=== PATIENT | male | born 1950 | race Caucasian/White ===

== ENCOUNTER 2017-07-30 19:52 | Inpatient (IN) | END 2017-08-06 16:45 | disposition home or self-care (01) | DRG 811 ==

== ENCOUNTER 2017-08-19 22:34 | Inpatient (IN) | END 2017-08-24 15:08 | disposition home or self-care (01) | DRG 433 ==

== ENCOUNTER 2018-06-07 10:39 | Emergency (ER) | payer BC ==
[~2018-06-07] VITALS: Wt 80.0 kg
[~2018-06-07 10:39] MED LIST: AMOX500C2 PO; FOLI-49 PO; FURO40TA4 PO; LACT10SO5 PO; PANT40TA4 PO; PROP10TA6 PO; RIFA550T4 PO; SPIR25TA PO; [UNRECOGNIZED DRUG - CODE] PO
[2018-06-07] MEDS ORDERED: SPIR50TA4 PO (11:49)
[2018-06-07] MEDS ORDERED: morphine 4 MG/ML VIAL IV STA (15:07)
--- NOTE | 2018-06-07 15:11 | ERD ---
ER Documentation Chief Complaint Chief Complaint ABD PAIN DUE TO PARACENTISIS HPI This 67-year-old male presents the emergency room for evaluation of abdominal distention. He does have a history of liver cirrhosis. Patient's daughter is giving the majority of the history and states that he was complaining of abdominal distention. Denies any abdominal, and daughter states he also has a history of a previous left-sided pleural effusion. The patient denies any fevers chills nausea or vomiting at this time. He describes his pain as an achy pain which is located all over the abdomen with relieving factor of paracentesis. ROS All systems reviewed and are negative except as per history of present illness. Medications Home Meds Active Scripts Folic Acid* (Folic Acid*) 1 Mg Tablet, 1 MG PO DAILY, #30 TAB 2 Refills Prov:KALINA MEZA S. 08/06/17 Reported Medications Spironolactone* (Aldactone*) 50 Mg Tablet, 50 MG PO BID, TAB 06/07/18 Lactulose* (Lactulose*) 10 Gm/15 Ml Solution, 15 ML PO BID PRN for CONSTIPATION, ML 08/19/17 Rifaximin* (Xifaxan*) 550 Mg Tablet, 550 MG PO BID, TAB 07/30/17 Discontinued Reported Medications Furosemide* (Furosemide*) 40 Mg Tablet, 40 MG PO BID, TAB 07/30/17 Spironolactone* (Aldactone*) 25 Mg Tablet, 100 MG PO BID, #180 TAB 07/30/17 Discontinued Scripts Clarithromycin* (Clarithromycin* ER) 500 Mg Tab.sr.24h, 500 MG PO BID for 12 Days, #24 TAB Prov:LISSETT FAN 08/24/17 Amoxicillin* (Amoxicillin*) 500 Mg Cap, 1000 MG PO BID for 12 Days, #24 CAP Prov:LISSETT FAN 08/24/17 Pantoprazole* (Pantoprazole*) 40 Mg Tablet.dr, 40 MG PO BID@, #60 2 Refills Prov:KALINA MEZA S. 08/06/17 Propranolol Hcl* (Propranolol Hcl*) 10 Mg Tablet, 10 MG PO TID, #90 TAB 3 Refills Prov:KALINA MEZA S. 08/06/17 Allergies Allergies: Coded Allergies: No Known Allergy (Unverified , 08/22/17) PMhx/Soc History of Surgery: No Anesthesia Reaction: No Hx Neurological Disorder: No Hx Respiratory Disorders: No Hx Cardiac Disorders: Yes (HYPOTENSION) Hx Psychiatric Problems: No Hx Miscellaneous Medical Probl: Yes (ANEMIA) Hx Alcohol Use: Yes Hx Substance Use: No Hx Tobacco Use: No Smoking Status: Never smoker Physical Exam Vitals Vital Signs Date Temp Pulse Resp B/P (MAP) Pulse Ox O2 O2 Flow FiO2 Time Delivery Rate 06/07/18 98.1 102 18 108/78 99 10:44 (88) Physical Exam Const: No acute distress Head: Atraumatic Eyes: Normal Conjunctiva ENT: Normal External Ears, Nose and Mouth. Neck: Full range of motion. No meningismus. Resp: Clear to auscultation bilaterally Cardio: Regular rate and rhythm, no murmurs Abd: Abdominal distention, normal bowel sounds, no peritoneal signs Skin: No petechiae or rashes Back: No midline or flank tenderness Ext: No cyanosis, or edema Neur: Awake and alert Psych: Normal Mood and Affect Result Diagram: 06/07/18 1205 06/07/18 1205 Results 24 hrs Laboratory Tests Test 06/07/18 12:05 White Blood Count 5.8 10^3/ul Red Blood Count 2.52 10^6/ul Hemoglobin 8.2 g/dl Hematocrit 24.3 % Mean Corpuscular Volume 96.4 fl Mean Corpuscular Hemoglobin 32.5 pg Mean Corpuscular Hemoglobin Concent 33.7 g/dl Red Cell Distribution Width 13.0 % Platelet Count 175 10^3/UL Mean Platelet Volume 8.8 fl Immature Granulocytes % 0.300 % Neutrophils % 66.5 % Lymphocytes % 16.3 % Monocytes % 16.3 % Eosinophils % 0.3 % Basophils % 0.3 % Nucleated Red Blood Cells % 0.0 /100WBC Immature Granulocytes # 0.020 10^3/ul Neutrophils # 3.8 10^3/ul Lymphocytes # 0.9 10^3/ul Monocytes # 0.9 10^3/ul Eosinophils # 0.0 10^3/ul Basophils # 0.0 10^3/ul Nucleated Red Blood Cells # 0.0 10^3/ul Prothrombin Time 16.5 Sec Prothrombin Time Ratio 1.3 INR International Normalized Ratio 1.31 Activated Partial Thromboplast Time 33.5 Sec Sodium Level 140 mmol/L Potassium Level 4.8 mmol/L Chloride Level 101 mmol/L Carbon Dioxide Level 26 mmol/L Anion Gap 13 Blood Urea Nitrogen 22 mg/dl Creatinine 1.18 mg/dl Est Glomerular Filtrat Rate mL/min > 60 mL/min Glucose Level 114 mg/dl Calcium Level 9.4 mg/dl Total Bilirubin 0.6 mg/dl Direct Bilirubin 0.00 mg/dl Indirect Bilirubin 0.6 mg/dl Aspartate Amino Transf (AST/SGOT) 58 IU/L Alanine Aminotransferase (ALT/SGPT) 27 IU/L Alkaline Phosphatase 117 IU/L Total Protein 7.6 g/dl Albumin 3.6 g/dl Globulin 4.00 g/dl Albumin/Globulin Ratio 0.90 Lipase 149 U/L Procedures/MDM This 67-year-old male presents to the ER for evaluation of abdominal distention. On my examination did know the patient was in no respiratory distress, he was afebrile and hemodynamically stable. The patient was also nontoxic-appearing. He did have a distended abdomen and did order lab work. I did order an ultr asound-guided paracentesis however there is been a delay given the fact that the radiologist is currently in the procedure. This patient will undergo ultrasound paracentesis for removal of fluid for therapeutic purposes and will be discharged afterwards. She was given strict return precautions. Chest X-ray 1V Interpreted by me: Soft Tissue: No acute a bnormalities Bones: No acute abnormalities Mediastinum/Cardiac Silhouette/Lungs: Left pleural effusion Departure Diagnosis: Primary Impression: Abdominal distention Additional Impressions: Pleural effusion, left Ascites Liver cirrhosis Condition: JOHNNA Khan DO Jun 07, 2018 15:11
--- NOTE | 2018-06-07 16:39 | NUR ---
Ultrasound guided paracentesis of the left side was performed. Dr. Noemi Hoover aspirated 5000 mL of red fluid. Fluid was discarded. Patient tolerated procedure well.
[2018-06-07] MEDS ORDERED: LIDOCAINE 1% (MPF) 5 ML VIAL ONE (16:44)
[2018-06-07 17:06] VITALS: BP 112/75; PULSE 94; RESP 20
== END 2018-06-07 17:07 | disposition home or self-care (01) ==
LOC: E/R 10:39
DX: J90 Pleural effusion, not elsewhere classified (principal); K70.31 Alcoholic cirrhosis of liver with ascites
CPT/HCPCS: 71045; 80053; 83690; 85025; 85610; 85730; Z7610; 36415; J2270

== ENCOUNTER 2018-08-11 09:33 | Emergency (ER) | payer BC ==
[~2018-08-11] VITALS: Ht 172.7 cm; Wt 86.0 kg
[~2018-08-11 09:33] MED LIST changes: -AMOX500C2 PO; -FURO40TA4 PO; -PANT40TA4 PO; -PROP10TA6 PO; -SPIR25TA PO; +SPIR50TA4 PO; -[UNRECOGNIZED DRUG - CODE] PO
[2018-08-11 09:46] VITALS: Ht 172.7 cm; Wt 86.0 kg
[2018-08-11] MEDS ORDERED: FURO-109 PO (10:38)
[2018-08-11 13:15] VITALS: BP 105/70; PULSE 87; RESP 22
[2018-08-11 13:55] VITALS: BP 117/73; PULSE 82; RESP 20
[2018-08-11] MEDS ORDERED: LIDOCAINE 1% (MPF) 5 ML VIAL ONE (14:06)
--- NOTE | 2018-08-11 14:11 | ERD ---
ER Documentation Chief Complaint Chief Complaint Complains of abdominal pain Hx of Ascites HPI Patient is a 68-year-old male with a history of cirrhosis and ascites who presents saying "I need a paracentesis". The patient has no fevers. The patient said that he usually gets a paracentesis monthly. Upon review of old medical records this is the patient's fourth visit to the ER since July 2017. Review of the emergency department information exchange system shows visits to 3 separate emergency departments. The patient does have a primary doctor. ROS All systems reviewed and are negative except as per history of present illness. Medications Home Meds Reported Medications Furosemide* (Lasix*) 40 Mg Tablet, 40 MG PO DAILY, TAB 08/11/18 Spironolactone* (Aldactone*) 50 Mg Tablet, 50 MG PO BID, TAB 06/07/18 Lactulose* (Lactulose*) 10 Gm/15 Ml Solution, 15 ML PO BID PRN for CONSTIPATION, ML 08/19/17 Rifaximin* (Xifaxan*) 550 Mg Tablet, 550 MG PO BID, TAB 07/30/17 Discontinued Scripts Folic Acid* (Folic Acid*) 1 Mg Tablet, 1 MG PO DAILY, #30 TAB 2 Refills Prov:KALINA MEZA S. 08/06/17 Allergies Allergies: Coded Allergies: No Known Allergy (Unverified , 08/22/17) PMhx/Soc History of Surgery: No Anesthesia Reaction: No Hx Neurological Disorder: No Hx Respiratory Disorders: No Hx Cardiac Disorders: Yes (HYPOTENSION) Hx Psychiatric Problems: No Hx Miscellaneous Medical Probl: Yes (ANEMIA) Hx Alcohol Use: Yes (stopped ) Hx Substance Use: No Hx Tobacco Use: No Smoking Status: Never smoker FmHx Family History: No diabetes Physical Exam Vitals Vital Signs Date Temp Pulse Resp B/P (MAP) Pulse Ox O2 O2 Flow FiO2 Time Delivery Rate 08/11/18 97.4 102 20 121/73 98 09:46 (89) Physical Exam Const: No acute distress Head: Atraumatic Eyes: Normal Conjunctiva ENT: Normal External Ears, Nose and Mouth. Neck: Full range of motion. No meningismus. Resp: Clear to auscultation bilaterally Cardio: Regular rate and rhythm, no murmurs Abd: Abdominal distention with positive fluid wave Skin: No petechiae or rashes Back: No midline or flank tenderness Ext: No cyanosis, or edema Neur: Awake and alert Psych: Normal Mood and Affect Result Diagram: 08/11/18 1027 08/11/18 1027 Results 24 hrs Laboratory Tests Test 08/11/18 10:27 White Blood Count 4.8 10^3/ul Red Blood Count 3.20 10^6/ul Hemoglobin 9.1 g/dl Hematocrit 28.3 % Mean Corpuscular Volume 88.4 fl Mean Corpuscular Hemoglobin 28.4 pg Mean Corpuscular Hemoglobin Concent 32.2 g/dl Red Cell Distribution Width 14.6 % Platelet Count 263 10^3/UL Mean Platelet Volume 8.9 fl Immature Granulocytes % 0.200 % Neutrophils % 48.7 % Lymphocytes % 35.4 % Monocytes % 12.6 % Eosinophils % 2.7 % Basophils % 0.4 % Nucleated Red Blood Cells % 0.0 /100WBC Immature Granulocytes # 0.010 10^3/ul Neutrophils # 2.3 10^3/ul Lymphocytes # 1.7 10^3/ul Monocytes # 0.6 10^3/ul Eosinophils # 0.1 10^3/ul Basophils # 0.0 10^3/ul Nucleated Red Blood Cells # 0.0 10^3/ul Prothrombin Time 14.6 Sec Prothrombin Time Ratio 1.1 INR International Normalized Ratio 1.13 Activated Partial Thromboplast Time 32.3 Sec Sodium Level 138 mmol/L Potassium Level 5.3 mmol/L Chloride Level 104 mmol/L Carbon Dioxide Level 28 mmol/L Anion Gap 6 Blood Urea Nitrogen 19 mg/dl Creatinine 1.11 mg/dl Est Glomerular Filtrat Rate mL/min > 60 mL/min Glucose Level 96 mg/dl Calcium Level 9.3 mg/dl Total Bilirubin 0.4 mg/dl Direct Bilirubin 0.00 mg/dl Indirect Bilirubin 0.4 mg/dl Aspartate Amino Transf (AST/SGOT) 71 IU/L Alanine Aminotransferase (ALT/SGPT) 27 IU/L Alkaline Phosphatase 141 IU/L Total Protein 8.2 g/dl Albumin 3.5 g/dl Globulin 4.70 g/dl Albumin/Globulin Ratio 0.74 Current Medications Medications Dose Sig/Dory Start Time Status Last (Trade) Ordered Route PRN Stop Time Admin Dose Reason Admin Lidocaine 5 ml STK-MED 08/11/18 DC (Xylocaine ONCE .ROUTE 14:06 08/11/18 1% (Mpf)) 14:07 Procedures/MDM Patient is a 68-year-old male who presents with ascites. He had an ultrasound-guided paracentesis performed by radiology. I doubt spontaneous bacterial peritonitis. The patient looks well after the procedure. He will be discharged. He can return for any worsening symptoms. Departure Diagnosis: Primary Impression: Ascites Ascites type: other type Qualified Codes: R18.8 - Other ascites Condition: Fair Patient Instructions: Ascites Referrals: MARY PIÑA Additional Instructions: Llame al doctor nomgwen golden (Referral Sources) MAANA y celso kishore YVES PARA DENTRO DE KISHORE SEMANA. Dgale a la secretaria que nosotros le instruimos hacer esta yves.Avise o llame si doran condicin se empeora antes de la yves. LANCE FRAZIER MD Aug 11, 2018 14:11
[2018-08-11 14:15] VITALS: BP 108/74; PULSE 78; RESP 17
== END 2018-08-11 14:17 | disposition home or self-care (01) ==
LOC: E/R 09:33
DX: R18.8 Other ascites (principal)
CPT/HCPCS: 80053; 85025; 85610; 85730; Z7502; Z7610

== ENCOUNTER 2018-08-15 18:12 | Inpatient (IN) | payer BC ==
[~2018-08-15] VITALS: Ht 170.2 cm; Wt 82.5 kg
[~2018-08-15 18:12] MED LIST changes: -FOLI-49 PO; +FURO-109 PO
[2018-08-15 19:40] VITALS: PULSE 99
[2018-08-15 19:41] VITALS: PULSE 99
[2018-08-15 20:00] VITALS: BP 91/71; PULSE 100; PULSE 101; RESP 20
[2018-08-15 20:08] VITALS: Ht 170.2 cm; Wt 82.5 kg
[2018-08-15] MEDS ORDERED: NACL 0.9% 3 ML SYG IV SCH (20:30)
[2018-08-15] MEDS ORDERED: DOCUSATE SODIUM 100 MG CAP PO PRN (20:30)
[2018-08-15] MEDS ORDERED: BISACODYL (EC) 5 MG TAB PO PRN (20:30)
[2018-08-15 20:32] VITALS: BP 83/62; PULSE 100; RESP 20
[2018-08-15 21:34] VITALS: BP 128/73; PULSE 104
[2018-08-15] MEDS: morphine 2 MG INJ IV PRN (21:34)
[2018-08-15] MEDS ORDERED: FUROSEMIDE 40 MG INJ IV ONE (22:30)
--- NOTE | 2018-08-15 23:23 | HP ---
Date/Time of Note Date/Time of Note DATE: 08/15/18 TIME: 23:23 Assessment/Plan VTE Prophylaxis SCD applied (from [facility]): Yes Pharmacological prophylaxis: NA/contraindicated Pharm contraindication: low risk/ambulating Assessment/Plan Hospital Course This is a 68-year-old male presented to the telemetry floor for: 1. Decompensated alcoholic liver cirrhosis, with ascites and history of esophageal varices The patient did have hypotension at the transfer facility, the current time I will hold Lasix and spironolactone. I will give him albumin 25% x2. If we achieve better blood pressures I will give him Lasix however will hold his Spironolactone at the current time given his hyperkalemia. We will schedule a therapeutic ultrasound paracentesis Via via IR. We will continue patient's lactulose and rifaximin. Will check an ammonia level, patient though at the current time does not appear to be encephalopathic. 2. Hepatocellular carcinoma: Based on records and transfer documentation. Patient himself was not able to provide a clear history regarding this will need to corroborate with family in regards to current treatment and goals of care, consider hematology consultation if indicated. 3. Acute kidney injury: Trend was noted to be elevated at 1.4 which is likely acute given his previous normal creatinine on 08/11/2018. Will order albumin. Once blood pressure improves we will give him Lasix for diuresis. Consider nephrology consultation if indicated. Will avoid NSAIDs 4. Anemia: Patient did present to [place] with hemoglobin of 6.7. He did receive 2 units PRBC we will check a stat CBC at the current time. History of esophageal varices however at the current time no reports of any hematemesis or melena or bright red blood per rectum. transfuse to goal of greater than 7.5. Will check a stool occult blood. Will consult GI. 5. DVT GI prophylaxis: SCDs, Protonix Further treatment strategy will be implemented as per the clinical course Result Diagram: 08/15/18203808/15/182038 Results 24hrs Laboratory Tests Test 08/15/18 20:39 08/15/18 22:25 White Blood Count 5.8 # Red Blood Count 2.67 L Hemoglobin 7.6 L Hematocrit 23.6 L Mean Corpuscular Volume 88.4 Mean Corpuscular Hemoglobin 28.5 L Mean Corpuscular Hemoglobin Concent 32.2 Red Cell Distribution Width 14.2 Platelet Count 200 # Mean Platelet Volume 9.4 Immature Granulocytes % 0.300 Neutrophils % 66.9 Lymphocytes % 22.5 Monocytes % 10.0 Eosinophils % 0.0 Basophils % 0.3 Nucleated Red Blood Cells % 0.0 Immature Granulocytes # 0.020 Neutrophils # 3.9 Lymphocytes # 1.3 Monocytes # 0.6 Eosinophils # 0.0 Basophils # 0.0 Nucleated Red Blood Cells # 0.0 Sodium Level 135 Potassium Level 5.4 H Chloride Level 102 Carbon Dioxide Level 23 Anion Gap 10 Blood Urea Nitrogen 24 H Creatinine 1.42 H Est Glomerular Filtrat Rate mL/min 49 L Glucose Level 110 Calcium Level 8.4 Magnesium Level 1.8 Total Bilirubin 1.3 Direct Bilirubin 0.00 Indirect Bilirubin 1.3 H Aspartate Amino Transf (AST/SGOT) 73 H Alanine Aminotransferase (ALT/SGPT) 37 Alkaline Phosphatase 87 Total Protein 6.6 Albumin 3.0 L Globulin 3.60 H Albumin/Globulin Ratio 0.83 Ammonia HPI/ROS Admit Date/Time Admit Date/Time Aug 15, 2018 at 19:32 Hx of Present Illness Chief complaint: Hypotension This is a 68-year-old male with a past medical history of alcoholic cirrhosis and hepatocellular carcinoma who presented to [facility] with dizziness and weakness. Patient was denying any fevers nausea vomiting or any hematemesis or melena. Patient does have a history of multiple paracentesis. Patient was noted to have a hemoglobin of 6.7. His lactate was elevated at 5.2 creatinine 1.3 and INR 1.4. Patient was ordered 2 units of packed red blood cells he was also given albumin.Patient also was given octreotide, Protonix, vitamin K and a 500 cc normal saline bolus . Patient was subsequently transferred to [facility] secondary to insurance purposes. He at the current time is not in any acute distress. He does report he takes medicine at home to help him diurese. 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 Pertinent laboratory findings on facility showed: Sodium 131 potassium 3.4 chloride 102 CO2 19 BUN 19 creatinine 1.34 Total bili 0.8 ALT 22 AST 51 White blood cells 5.3 hemoglobin 6.7 hematocrit 21.2 platelets 24.7 INR 1.4 chest x-ray showed: Left pleural effusion noted next ROS Const: As per HPI Eyes : No pain discharge or redness or change in visual acuity ENT: No pain, sore throat, congestion, congestion, dysphagia or discharge Respiratory: No shortness of breath, cough, sputum, wheezing, or pleuritic pain Cardiovascular: No chest pain, palpitation, PND, or edema GI : As per HPI Genitourinary: No dysuria, hematuria, flank pain , discharge or CVA tenderness Musculoskeletal: No joint pain, back pain, neck pain, restricted range of motion in neck or joints Skin: No rash, bruising or hives Neuro: No headache, dizziness, syncope, seizure, focal weakness Endocrine: No polyuria, polydipsia, temperature intolerance Psych: No hallucination, depression, anxiety or suicidal ideation PMH/Family/Social Past Medical History Decompensated alcoholic liver cirrhosis Anemia Hepatocellular carcinoma esophageal varices Medications Current Medications IV Flush (NS 3 ml) 3 ml PER PROTOCOL IV ; Start 08/15/18 at 20:30 Acetaminophen (Tylenol Tab) 650 mg Q6H PRN PO .PAIN 1-3 OR TEMP; Start 08/15/18 at 20:30 Morphine Sulfate (morphine) 1 mg Q4H PRN IV .PAIN 7-10 Last administered on 08/15/18at 21:34; Admin Dose 1 MG; Start 08/15/18 at 20:30 Docusate Sodium (Colace) 100 mg Q12H PRN PO .CONSTIPATION; Start 08/15/18 at 20:30 Bisacodyl (Dulcolax) 5 mg DAILY PRN PO .CONSTIPATION; Start 08/15/18 at 20:30 Coded Allergies: No Known Allergy (Unverified , 08/22/17) Past Surgical History Multiple paracentesis EGD Past Surgical Hx: endoscopy, other Family History Significant Family History: no pertinent family hx Social History Alcohol Use: sober Smoking Status: Never smoker Drug Use: none Exam/Review of Systems Vital Signs Vitals Vital Signs Date Temp Pulse Resp B/P (MAP) Pulse Ox O2 O2 Flow FiO2 Time Delivery Rate 08/15/18 104 128/73 21:34 (91) 08/15/18 20 Room Air 20:32 08/15/18 98.2 94 20:00 Exam Exam General: Patient is currently lying in bed in no acute distress HEENT: Atraumatic, normocephalic. The pupils are equal, round and reactive. Extraocular motor are intact Neck: Supple with full range of motion. No rigidity or meningismus Chest: Nontender Lungs: Clear to auscultation bilaterally no crackles rales or wheezing Heart: Normal S1-S2, Regular rhythm and rate. No murmur, S3, or S4 Abdomen: Tympanic and distended, ascites, protuberant hoffman hernia Extremities: Normal to inspection, no edema no cyanosis, normal bowel sounds Neurologic: Normal mental status, speech normal, cranial nerves II through XII are intact, motor and sensory are intact, CHIDI RENEE Aug 15, 2018 23:23
[2018-08-15] MEDS ORDERED: LACTULOSE 30ML CUP PO PRN (23:30)
[2018-08-16] VITALS (10 sets, daily range): BP systolic 98–106; BP diastolic 56–65; PULSE 84–98; RESP 18–20
[2018-08-16] MEDS: ALBUMIN HUMAN 25% 100 ML IV SCH ×2 (00:04→01:02)
[2018-08-16] MEDS: RIFAXIMIN 550 MG TAB PO SCH ×3 (00:22→23:12)
[2018-08-16] MEDS ORDERED: FUROSEMIDE 40 MG INJ IV ONE (05:00)
[2018-08-16] MEDS: PANTOPRAZOLE (EC) 40 MG TAB PO SCH (05:32)
[2018-08-16] MEDS: ACETAMINOPHEN 325 MG TAB PO PRN ×2 (08:42→23:19)
[2018-08-16] MEDS ORDERED: INSULIN REGULAR, HUMAN 100 UNIT/1 ML 3ML VIAL IVP STA (08:42)
--- NOTE | 2018-08-16 08:43 | PN ---
Date/Time of Note Date/Time of Note DATE: 08/16/18 TIME: 08:43 Assessment/Plan VTE Prophylaxis Risk score (from [facility]0 risk: 4 SCD applied (from [facility] No SCD contraindicated: other Pharmacological prophylaxis: NA/contraindicated Pharm contraindication: bleeding Lines/Catheters IV [facility] Saline Lock Assessment/Plan Assessment/Plan 1. Decompensated alcoholic cirrhosis - ascites present and 4L removed from abdomen this am - holding aldactone given low BP - GI on board and recommendations appreciated. Will plan for EGD on Saturday to assess for varices - continue lactulose and rifaximin 2. Anemia, chronic disease - hgb 6.1 this am and 2 PRBC ordered - monitor for acute GI bleeding 3. ?HCC 4. Acute kidney injury - Cr 1.57 and may be secondary to congestion - will continue monitoring and avoid nephrotoxic agents. If worsens, will co nsult Nephrology 5. Elevated LFT - secondary to #1 6. hyperK - Insulin/dextrose 7. Disposition - Plans for EGD on Saturday per GI - Holding diuretics but will restart as BP allows Result Diagram: 08/16/18 0505 08/16/18 0505 Results 24hrs Laboratory Tests Test 08/15/18 20:39 08/15/18 22:25 08/16/18 05:05 White Blood Count 5.8 # 5.7 Red Blood Count 2.67 L 2.15 L Hemoglobin 7.6 L 6.1 *L Hematocrit 23.6 L 18.6 #L Mean Corpuscular Volume 88.4 86.5 Mean Corpuscular Hemoglobin 28.5 L 28.4 L Mean Corpuscular Hemoglobin Concent 32.2 32.8 Red Cell Distribution Width 14.2 13.9 Platelet Count 200 # 165 Mean Platelet Volume 9.4 9.5 Immature Granulocytes % 0.300 0.200 Neutrophils % 66.9 52.3 Lymphocytes % 22.5 32.0 Monocytes % 10.0 14.7 H Eosinophils % 0.0 0.4 Basophils % 0.3 0.4 Nucleated Red Blood Cells % 0.0 0.0 Immature Granulocytes # 0.020 0.010 Neutrophils # 3.9 3.0 Lymphocytes # 1.3 1.8 Monocytes # 0.6 0.8 Eosinophils # 0.0 0.0 Basophils # 0.0 0.0 Nucleated Red Blood Cells # 0.0 0.0 Sodium Level 135 134 L Potassium Level 5.4 H 5.3 H Chloride Level 102 99 Carbon Dioxide Level 23 25 Anion Gap 10 10 Blood Urea Nitrogen 24 H 24 H Creatinine 1.42 H 1.57 H Est Glomerular Filtrat Rate mL/min 49 L 44 L Glucose Level 110 108 Calcium Level 8.4 8.6 Magnesium Level 1.8 1.9 Total Bilirubin 1.3 1.4 H Direct Bilirubin 0.00 0.00 Indirect Bilirubin 1.3 H 1.4 H Aspartate Amino Transf (AST/SGOT) 73 H 90 H Alanine Aminotransferase (ALT/SGPT) 37 47 Alkaline Phosphatase 87 70 Total Protein 6.6 6.6 Albumin 3.0 L 3.2 L Globulin 3.60 H 3.40 H Albumin/Globulin Ratio 0.83 0.94 Ammonia Prothrombin Time 18.7 #H Prothrombin Time Ratio 1.5 INR International Normalized Ratio 1.55 Activated Partial Thromboplast Time 34.6 Hemoglobin A1c Triglycerides Level 49 Cholesterol Level < 50 L LDL Cholesterol, Calculated HDL Cholesterol 15 L Cholesterol/HDL Ratio Thyroid Stimulating Hormone (TSH) 0.454 L Subjective 24 Hr Interval Summary Free Text/Dictation Patient states hes feeling better after paracentesis and pain in abdominal area has improved. Denies any GI bleeding or hematemesis. Exam/Review of Systems Exam Vitals Vital Signs Date Temp Pulse Resp B/P (MAP) Pulse Ox O2 O2 Flow FiO2 Time Delivery Rate 08/16/18 98.0 93 18 105/59 97 Room Air 07:23 (74) Intake and Output 08/15/18 08/15/18 08/16/18 1515:00 23:00 07:00 IntakeIntake Total 250 ml OutputOutput Total 300 ml BalanceBalance -50 ml Exam General: Patient is currently lying in bed in no acute distress Neck: Supple Chest: Nontender Lungs: Clear to auscultation bilaterally no crackles rales or wheezing Heart: Normal S1-S2, Regular rhythm and rate. No murmur, S3, or S4 Abdomen: soft, mildly distended, nontender, protuberant hoffman hernia. no rebound or guarding Extremities: Normal to inspection, no edema no cyanosis, normal bowel sounds Results Results 24hrs Laboratory Tests Test 08/15/18 20:39 08/15/18 22:25 08/16/18 05:05 White Blood Count 5.8 # 5.7 Red Blood Count 2.67 L 2.15 L Hemoglobin 7.6 L 6.1 *L Hematocrit 23.6 L 18.6 #L Mean Corpuscular Volume 88.4 86.5 Mean Corpuscular Hemoglobin 28.5 L 28.4 L Mean Corpuscular Hemoglobin Concent 32.2 32.8 Red Cell Distribution Width 14.2 13.9 Platelet Count 200 # 165 Mean Platelet Volume 9.4 9.5 Immature Granulocytes % 0.300 0.200 Neutrophils % 66.9 52.3 Lymphocytes % 22.5 32.0 Monocytes % 10.0 14.7 H Eosinophils % 0.0 0.4 Basophils % 0.3 0.4 Nucleated Red Blood Cells % 0.0 0.0 Immature Granulocytes # 0.020 0.010 Neutrophils # 3.9 3.0 Lymphocytes # 1.3 1.8 Monocytes # 0.6 0.8 Eosinophils # 0.0 0.0 Basophils # 0.0 0.0 Nucleated Red Blood Cells # 0.0 0.0 Sodium Level 135 134 L Potassium Level 5.4 H 5.3 H Chloride Level 102 99 Carbon Dioxide Level 23 25 Anion Gap 10 10 Blood Urea Nitrogen 24 H 24 H Creatinine 1.42 H 1.57 H Est Glomerular Filtrat Rate mL/min 49 L 44 L Glucose Level 110 108 Calcium Level 8.4 8.6 Magnesium Level 1.8 1.9 Total Bilirubin 1.3 1.4 H Direct Bilirubin 0.00 0.00 Indirect Bilirubin 1.3 H 1.4 H Aspartate Amino Transf (AST/SGOT) 73 H 90 H Alanine Aminotransferase (ALT/SGPT) 37 47 Alkaline Phosphatase 87 70 Total Protein 6.6 6.6 Albumin 3.0 L 3.2 L Globulin 3.60 H 3.40 H Albumin/Globulin Ratio 0.83 0.94 Ammonia Prothrombin Time 18.7 #H Prothrombin Time Ratio 1.5 INR International Normalized Ratio 1.55 Activated Partial Thromboplast Time 34.6 Hemoglobin A1c Triglycerides Level 49 Cholesterol Level < 50 L LDL Cholesterol, Calculated HDL Cholesterol 15 L Cholesterol/HDL Ratio Thyroid Stimulating Hormone (TSH) 0.454 L Medications Medication Current Medications IV Flush (NS 3 ml) 3 ml PER PROTOCOL IV ; Start 08/15/18 at 20:30 Acetaminophen (Tylenol Tab) 650 mg Q6H PRN PO .PAIN 1-3 OR TEMP Last administered on 08/16/18 08:42; Admin Dose 650 MG; Start 08/15/18 at 20:30 Morphine Sulfate (morphine) 1 mg Q4H PRN IV .PAIN 7-10 Last administered on 08/15/18at 21:34; Admin Dose 1 MG; Start 08/15/18 at 20:30 Docusate Sodium (Colace) 100 mg Q12H PRN PO .CONSTIPATION; Start 08/15/18 at 20:30 Bisacodyl (Dulcolax) 5 mg DAILY PRN PO .CONSTIPATION; Start 08/15/18 at 20:30 Lactulose (Enulose) 10 gm BID PRN PO CONSTIPATION; Start 08/15/18 at 23:30 Rifaximin (Xifaxan) 550 mg BID PO Last administered on 08/16/18 08:42; Admin Dose 550 MG; Start 08/15/18 at 23:30 Pantoprazole (Protonix Tab) 40 mg DAILY@06 PO Last administered on 08/16/18at 05:32; Admin Dose 40 MG; Start 08/16/18 at 06:00 JOCELYN SCHULTZ MD Aug 16, 2018 08:43
[2018-08-16] MEDS ORDERED: DEXTROSE 50% 50 ML SYRINGE IV PRN (09:00)
[2018-08-16] MEDS ORDERED: LIDOCAINE 1% (MPF) 5 ML VIAL ONE (11:59)
--- NOTE | 2018-08-16 14:17 | CONS ---
Assessment/Plan Assessment/Plan Assessment/Plan (Daily) Assessment: Anemia with suspected GI bleeding, possibly secondary to esophageal varices Alcoholic liver cirrhosis, LFT's stable Ascites, status post paracentesis with 4.2 L out History of hepatocellular carcinoma: Based on records and prior documentation Acute kidney injury Hyperbilirubinemia, likely secondary to above. Hyperkalemia Plan: Discussed with the patient that he may require a repeat EGD to evaluate varices as a source of bleeding. He is agreeable to proceed. Will plan tentatively for Saturday. Monitor CBC, transfuse for Hgb <7. Check CMP tomorrow Continue Rifaximin Hold Spironolactone Continue protonix Discussed with Dr. Castelan. CC: MONICO CASTELAN MD ; Consultation Date/Type/Reason Admit Date/Time Aug 15, 2018 at 19:32 Date of Consultation: Aug 16, 2018 Type of Consult gastroenterology Reason for Consultation liver cirrhosis with severe anemia, suspected GI bleeding Requesting Provider: CHIDI RENEE Date/Time of Note DATE: 08/16/18 TIME: 13:57 Hx of Present Illness 68 y/o male with a past medical history of alcoholic cirrhosis and hepatocellular carcinoma who presented to [facility] with dizziness and weakness. He also reports nausea and vomiting for 1 day prior to admission. He denies any coffee grounds of hematemesis, states emesis was clear yellow. He was noted to have a hemoglobin of 6.7 and was transfused 2 units PRBC. He denies any melena, diarrhea, or constipation. He denies any fevers, chills, or abdominal pain. He reports he had an EGD about 6 months ago. He denies any prior surgeries. He was found to have ascites and had paracentesis of 4.2 liters out. Constitutional: No no complaints, No improved, No chills, No diaphoresis, No disoriented, No febrile, No poor po, No requiring IVF, No requiring O2, No other Eyes: No no complaints, No pain, No discharge, No redness, No visual change, No other Respiratory: No no complaints, No pain, No cough, No pleuritic pain, No shortness of breath, No sputum, No wheezing, No other Cardiovascular: lightheadedness Gastrointestinal: nausea, vomiting; No no complaints, No pain, No blood, No constipation, No decreased appetite, No diarrhea, No flatus, No passing stool, No other Skin: No no complaints, No bruising, No erythema, No laceration, No pruritis, No rash, No skin lesions, No other Neurologic: dizziness; No no complaints, No confusion, No focal-weakness, No headache, No syncope, No seizure, No other Psychological: No no complaints, No nl mood/affect, No anxiety, No confusion, No depression, No suicidal, No other Past Medical History Home Meds Reported Medications Furosemide* (Lasix*) 40 Mg Tablet, 40 MG PO DAILY, TAB 08/11/18 Spironolactone* (Aldactone*) 50 Mg Tablet, 50 MG PO BID, TAB 06/07/18 Lactulose* (Lactulose*) 10 Gm/15 Ml Solution, 15 ML PO BID PRN for CONSTIPATION, ML 08/19/17 Rifaximin* (Xifaxan*) 550 Mg Tablet, 550 MG PO BID, TAB 07/30/17 Discontinued Scripts Folic Acid* (Folic Acid*) 1 Mg Tablet, 1 MG PO DAILY, #30 TAB 2 Refills Prov:KALINA MEZA S. 08/06/17 Medications Current Medications IV Flush (NS 3 ml) 3 ml PER PROTOCOL IV ; Start 08/15/18 at 20:30 Acetaminophen (Tylenol Tab) 650 mg Q6H PRN PO .PAIN 1-3 OR TEMP Last administered on 08/16/18at 08:42; Admin Dose 650 MG; Start 08/15/18 at 20:30 Morphine Sulfate (morphine) 1 mg Q4H PRN IV .PAIN 7-10 Last administered on 08/15/18at 21:34; Admin Dose 1 MG; Start 08/15/18 at 20:30 Docusate Sodium (Colace) 100 mg Q12H PRN PO .CONSTIPATION; Start 08/15/18 at 20:30 Bisacodyl (Dulcolax) 5 mg DAILY PRN PO .CONSTIPATION; Start 08/15/18 at 20:30 Lactulose (Enulose) 10 gm BID PRN PO CONSTIPATION; Start 08/15/18 at 23:30 Rifaximin (Xifaxan) 550 mg BID PO Last administered on 08/16/18at 08:42; Admin Dose 550 MG; Start 08/15/18 at 23:30 Pantoprazole (Protonix Tab) 40 mg DAILY@06 PO Last administered on 08/16/18at 05:32; Admin Dose 40 MG; Start 08/16/18 at 06:00 Dextrose (D50w Syringe) ONCE PRN IV DECREASED GLUCOSE Last administered on 08/16/18at 12:51; Admin Dose 50 ML; Start 08/16/18 at 09:00; Stop 08/16/18 at 23:00 Allergies: Coded Allergies: No Known Allergy (Unverified , 08/22/17) Past Surgical History Past Surgical Hx: endoscopy, other Social History Alcohol Use: sober Smoking Status: Never smoker Drug Use: none Exam/Review of Systems Exam Vitals Vital Signs Date Temp Pulse Resp B/P (MAP) Pulse Ox O2 O2 Flow FiO2 Time Delivery Rate 08/16/18 85 12:01 08/16/18 98.0 18 105/59 97 Room Air 07:23 (74) Intake and Output 08/15/18 08/15/18 08/16/18 1515:00 23:00 07:00 IntakeIntake Total 250 ml OutputOutput Total 300 ml BalanceBalance -50 ml Constitutional: alert, oriented Psych: No no complaints, No nl mood/affect, No anxiety, No confusion, No depression, No suicidal, No other Head: No normocephalic, No atraumatic, No lacerations, No hematomas, No other Neck: No supple, No non-tender, No jvd, No bruits, No masses, No thyromegaly, No nuchal rigidity, No other Cardiovascular: No regular rate and rhythm, No nl pulses, No bruits, No diastolic murmur, No edema, No gallop, No irregular rhythm, No jugular venous distention (JVD), No murmurs/extra sounds, No rub, No systolic murmur, No S3, No S4, No other Gastrointestinal: ascites; No soft, No nl liver, spleen, No non-tender, No bowel sounds, No distended, No firm, No hepatomegaly, No mass, No rebound or guarding, No splenomegaly, No surgical scars, No tender, No other Neurological: No 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 intact, No nl mental status, No nl speech, No nl strength, No confused, No DTR's symmetric, No focal weakness, No lethargic, No numbness, No reflexes, No unresponsive, No other Skin: other (sleral icterus); No nl turgor, No rash or lesions, No diaphoresis, No ecchymosis, No laceration, No puncture Results Result Diagram: 08/16/18 1216 08/16/18 0505 Results 24hrs Laboratory Tests Test 08/15/18 20:39 08/15/18 22:25 08/16/18 05:05 08/16/18 12:16 White Blood Count 5.8 # 5.7 5.6 Red Blood Count 2.67 L 2.15 L 2.14 L Hemoglobin 7.6 L 6.1 *L 6.1 *L Hematocrit 23.6 L 18.6 #L 18.7 L Mean Corpuscular Volume 88.4 86.5 87.4 Mean Corpuscular 28.5 L 28.4 L 28.5 L Hemoglobin Mean Corpuscular 32.2 32.8 32.6 Hemoglobin Concent Red Cell Distribution 14.2 13.9 14.1 Width Platelet Count 200 # 165 173 Mean Platelet Volume 9.4 9.5 9.6 Immature Granulocytes % 0.300 0.200 0.400 Neutrophils % 66.9 52.3 53.6 Lymphocytes % 22.5 32.0 27.0 Monocytes % 10.0 14.7 H 18.1 H Eosinophils % 0.0 0.4 0.5 Basophils % 0.3 0.4 0.4 Nucleated Red Blood 0.0 0.0 0.0 Cells % Immature Granulocytes # 0.020 0.010 0.020 Neutrophils # 3.9 3.0 3.0 Lymphocytes # 1.3 1.8 1.5 Monocytes # 0.6 0.8 1.0 H Eosinophils # 0.0 0.0 0.0 Basophils # 0.0 0.0 0.0 Nucleated Red Blood 0.0 0.0 0.0 Cells # Sodium Level 135 134 L Potassium Level 5.4 H 5.3 H Chloride Level 102 99 Carbon Dioxide Level 23 25 Anion Gap 10 10 Blood Urea Nitrogen 24 H 24 H Creatinine 1.42 H 1.57 H Est Glomerular Filtrat 49 L 44 L Rate mL/min Glucose Level 110 108 Calcium Level 8.4 8.6 Magnesium Level 1.8 1.9 Total Bilirubin 1.3 1.4 H Direct Bilirubin 0.00 0.00 Indirect Bilirubin 1.3 H 1.4 H Aspartate Amino 73 H 90 H Transf (AST/SGOT) Alanine 37 47 Aminotransferase (ALT/SG PT) Alkaline Phosphatase 87 70 Total Protein 6.6 6.6 Albumin 3.0 L 3.2 L Globulin 3.60 H 3.40 H Albumin/Globulin Ratio 0.83 0.94 Ammonia Prothrombin Time 18.7 #H Prothrombin Time Ratio 1.5 INR International 1.55 Normalized Ratio Activated 34.6 Partial Thromboplast Time Hemoglobin A1c Triglycerides Level 49 Cholesterol Level < 50 L LDL Cholesterol, Calculated HDL Cholesterol 15 L Cholesterol/HDL Ratio Thyroid Stimulating 0.454 L Hormone (TSH) Test 08/16/18 12:44 Bedside Glucose 119 Medications Medication Current Medications IV Flush (NS 3 ml) 3 ml PER PROTOCOL IV ; Start 08/15/18 at 20:30 Acetaminophen (Tylenol Tab) 650 mg Q6H PRN PO .PAIN 1-3 OR TEMP Last administered on 08/16/18 08:42; Admin Dose 650 MG; Start 08/15/18 at 20:30 Morphine Sulfate (morphine) 1 mg Q4H PRN IV .PAIN 7-10 Last administered on 08/15/18 21:34; Admin Dose 1 MG; Start 08/15/18 at 20:30 Docusate Sodium (Colace) 100 mg Q12H PRN PO .CONSTIPATION; Start 08/15/18 at 20:30 Bisacodyl (Dulcolax) 5 mg DAILY PRN PO .CONSTIPATION; Start 08/15/18 at 20:30 Lactulose (Enulose) 10 gm BID PRN PO CONSTIPATION; Start 08/15/18 at 23:30 Rifaximin (Xifaxan) 550 mg BID PO Last administered on 08/16/18 08:42; Admin Dose 550 MG; Start 08/15/18 at 23:30 Pantoprazole (Protonix Tab) 40 mg DAILY@06 PO Last administered on 08/16/18 05:32; Admin Dose 40 MG; Start 08/16/18 at 06:00 Dextrose (D50w Syringe) ONCE PRN IV DECREASED GLUCOSE Last administered on 08/16/18 12:51; Admin Dose 50 ML; Start 08/16/18 at 09:00; Stop 08/16/18 at 23:00 NEYDA TANG NP Aug 16, 2018 14:07
[2018-08-16] MEDS ORDERED: SOD CHLORIDE 0.9% 250 ML IV* ONE (15:25)
[2018-08-17] VITALS (12 sets, daily range): BP systolic 94–111; BP diastolic 55–71; PULSE 80–104; RESP 16–18
[2018-08-17] MEDS: PANTOPRAZOLE (EC) 40 MG TAB PO SCH (07:01)
[2018-08-17] MEDS: RIFAXIMIN 550 MG TAB PO SCH ×2 (08:08→21:07)
[2018-08-17] MEDS: ACETAMINOPHEN 325 MG TAB PO PRN (08:08)
--- NOTE | 2018-08-17 08:42 | PN ---
Date/Time of Note Date/Time of Note DATE: 08/17/18 TIME: 08:42 Assessment/Plan VTE Prophylaxis Risk score (from [facility])>0 risk: 4 SCD applied (from [facility]): Yes Pharmacological prophylaxis: NA/contraindicated Pharm contraindication: liver dx Lines/Catheters IV Catheter Type (from [facility]): Saline Lock Assessment/Plan Assessment/Plan 1. Decompensated alcoholic cirrhosis - s/p paracentesis 08/16/18 with 4L removed - holding diuretics given low BP - GI on board and recommendations appreciated. Will plan for EGD on Saturday to assess for varices - continue lactulose and rifaximin 2. Anemia, chronic disease - improvement in hgb following 2 pRBC transfusion yesterday - monitor for acute GI bleeding 3. ?HCC 4. Acute kidney injury- resolved - avoid nephrotoxic agents 5. Elevated LFT - secondary to #1 6. hyperK - resolved 7. Disposition - Plans for EGD on Saturday per GI - Holding diuretics but will restart as BP allows Result Diagram: 08/17/1852208/17/18522 Results 24hrs Laboratory Tests Test 08/16/18 12:16 08/16/18 12:44 08/16/18 14:01 08/17/18 05:23 White Blood Count 5.6 6.4 Red Blood Count 2.14 L 2.89 #L Hemoglobin 6.1 *L 8.5 #L Hematocrit 18.7 L 24.8 #L Mean Corpuscular Volume 87.4 85.8 Mean Corpuscular 28.5 L 29.4 Hemoglobin Mean Corpuscular 32.6 34.3 Hemoglobin Concent Red Cell Distribution 14.1 13.5 Width Platelet Count 173 170 Mean Platelet Volume 9.6 9.3 Immature Granulocytes % 0.400 0.500 H Neutrophils % 53.6 51.5 Lymphocytes % 27.0 28.5 Monocytes % 18.1 H 17.4 H Eosinophils % 0.5 1.6 Basophils % 0.4 0.5 Nucleated Red Blood 0.0 0.0 Cells % Immature Granulocytes # 0.020 0.030 Neutrophils # 3.0 3.3 Lymphocytes # 1.5 1.8 Monocytes # 1.0 H 1.1 H Eosinophils # 0.0 0.1 Basophils # 0.0 0.0 Nucleated Red Blood 0.0 0.0 Cells # Bedside Glucose 119 107 Sodium Level 135 Potassium Level 4.4 Chloride Level 102 Carbon Dioxide Level 26 Anion Gap 7 Blood Urea Nitrogen 21 H Creatinine 1.23 Est Glomerular Filtrat 58 L Rate mL/min Glucose Level 92 Calcium Level 8.0 L Total Bilirubin 1.7 H Direct Bilirubin 0.00 Indirect Bilirubin 1.7 H Aspartate Amino 103 H Transf (AST/SGOT) Alanine 51 Aminotransferase (ALT/S GPT) Alkaline Phosphatase 69 Total Protein 6.2 Albumin 2.8 L Globulin 3.40 H Albumin/Globulin Ratio 0.82 Subjective 24 Hr Interval Summary Free Text/Dictation Patient doing well and denies any acute issues. No acute overnight events. Exam/Review of Systems Exam Vitals Vital Signs Date Temp Pulse Resp B/P (MAP) Pulse Ox O2 O2 Flow FiO2 Time Delivery Rate 08/17/18 98.8 86 17 101/62 95 07:53 (75) 08/16/18 Room Air 07:23 Intake and Output 08/16/18 08/16/18 08/17/18 1515:00 23:00 07:00 IntakeIntake Total 970 ml 502 ml OutputOutput Total 350 ml 180 ml BalanceBalance -350 ml 970 ml 322 ml Exam General: Patient is currently lying in bed in no acute distress Lungs: Clear to auscultation bilaterally no crackles rales or wheezing Heart: Normal S1-S2, Regular rhythm and rate. No murmur, S3, or S4 Abdomen: soft, protuberant, nontender. no rebound or guarding Extremities: Normal to inspection, no edema no cyanosis, normal bowel sounds Results Results 24hrs Laboratory Tests Test 08/16/18 12:16 08/16/18 12:44 08/16/18 14:01 08/17/18 05:23 White Blood Count 5.6 6.4 Red Blood Count 2.14 L 2.89 #L Hemoglobin 6.1 *L 8.5 #L Hematocrit 18.7 L 24.8 #L Mean Corpuscular Volume 87.4 85.8 Mean Corpuscular 28.5 L 29.4 Hemoglobin Mean Corpuscular 32.6 34.3 Hemoglobin Concent Red Cell Distribution 14.1 13.5 Width Platelet Count 173 170 Mean Platelet Volume 9.6 9.3 Immature Granulocytes % 0.400 0.500 H Neutrophils % 53.6 51.5 Lymphocytes % 27.0 28.5 Monocytes % 18.1 H 17.4 H Eosinophils % 0.5 1.6 Basophils % 0.4 0.5 Nucleated Red Blood 0.0 0.0 Cells % Immature Granulocytes # 0.020 0.030 Neutrophils # 3.0 3.3 Lymphocytes # 1.5 1.8 Monocytes # 1.0 H 1.1 H Eosinophils # 0.0 0.1 Basophils # 0.0 0.0 Nucleated Red Blood 0.0 0.0 Cells # Bedside Glucose 119 107 Sodium Level 135 Potassium Level 4.4 Chloride Level 102 Carbon Dioxide Level 26 Anion Gap 7 Blood Urea Nitrogen 21 H Creatinine 1.23 Est Glomerular Filtrat 58 L Rate mL/min Glucose Level 92 Calcium Level 8.0 L Total Bilirubin 1.7 H Direct Bilirubin 0.00 Indirect Bilirubin 1.7 H Aspartate Amino 103 H Transf (AST/SGOT) Alanine 51 Aminotransferase (ALT/S GPT) Alkaline Phosphatase 69 Total Protein 6.2 Albumin 2.8 L Globulin 3.40 H Albumin/Globulin Ratio 0.82 Medications Medication Current Medications IV Flush (NS 3 ml) 3 ml PER PROTOCOL IV ; Start 08/15/18 at 20:30 Acetaminophen (Tylenol Tab) 650 mg Q6H PRN PO .PAIN 1-3 OR TEMP Last administered on 08/17/18 08:08; Admin Dose 650 MG; Start 08/15/18 at 20:30 Morphine Sulfate (morphine) 1 mg Q4H PRN IV .PAIN 7-10 Last administered on 08/15/18at 21:34; Admin Dose 1 MG; Start 08/15/18 at 20:30 Docusate Sodium (Colace) 100 mg Q12H PRN PO .CONSTIPATION Last administered on 08/17/18at 08:08; Admin Dose 100 MG; Start 08/15/18 at 20:30 Bisacodyl (Dulcolax) 5 mg DAILY PRN PO .CONSTIPATION Last administered on 08/17/18 08:08; Admin Dose 5 MG; Start 08/15/18 at 20:30 Lactulose (Enulose) 10 gm BID PRN PO CONSTIPATION; Start 08/15/18 at 23:30 Rifaximin (Xifaxan) 550 mg BID PO Last administered on 08/17/18 08:08; Admin Dose 550 MG; Start 08/15/18 at 23:30 Pantoprazole (Protonix Tab) 40 mg DAILY@06 PO Last administered on 08/17/18at 07:01; Admin Dose 40 MG; Start 08/16/18 at 06:00 JOCELYN SCHULTZ MD Aug 17, 2018 08:42
--- NOTE | 2018-08-17 16:44 | PN ---
Date/Time of Note Date/Time of Note DATE: 08/17/18 TIME: 16:31 Assessment/Plan VTE Prophylaxis Risk score (from [facility])>0 risk: 6 SCD applied (from [facility]): Yes Pharmacological prophylaxis: NA/contraindicated Pharm contraindication: bleeding, liver dx Lines/Catheters IV [facility] Peripheral IV Assessment/Plan Assessment/Plan Assessment: Anemia with suspected GI bleeding, possibly secondary to esophageal varices Alcoholic liver cirrhosis, LFT's stable Ascites, status post paracentesis with 4.2 L out History of hepatocellular carcinoma: Based on records and prior documentation Acute kidney injury Hyperbilirubinemia, likely secondary to above. Hyperkalemia Plan: Discussed with the patient that he may require a repeat EGD to evaluate varices as a source of bleeding. He is agreeable to proceed. Benefits, alternatives, risk, potential complications of procedure discussed with the patient and family who is agreeable to proceed. Will plan for Saturday. Monitor CBC, transfuse for Hgb <7. S/p 2 units PRBC last night. Check CMP tomorrow Continue Rifaximin Hold Spironolactone Continue protonix Start Lactulose 15 ml BID Subjective: Patient reports improved abdominal discomfort and distention after paracentesis yesterday. Denies any nausea or vomiting. He had a bowel movement today. Denies any rectal bleeding or hematemesis. Reports he was on Lactulose at home, will resume. Physical Exam: Constitutional: alert, oriented Psych: No no complaints, No nl mood/affect, No anxiety, No confusion Head: No normocephalic, No atraumatic, No lacerations, No hematomas, No other Neck: No supple, No non-tender, No jvd, No bruits, No masses, No thyromegaly, No nuchal rigidity, No other Cardiovascular: No regular rate and rhythm, No nl pulses, No bruits, No diastolic murmur, No edema, No gallop, No irregular rhythm, No jugular venous distention (JVD), No murmurs/extra sounds, No rub, No systolic murmur, No S3, No S4, No other Gastrointestinal: ascites; No soft, No nl liver, spleen, No non-tender, No bowel sounds, mildly distended, No firm, No hepatomegaly, No mass, No rebound or guarding, No splenomegaly, No surgical scars, No tender Neurological: No MANAGER RADIO II-XII intact, No nl mental status, No nl speech, No nl s trength, No confused, No DTR's symmetric, No focal weakness, No lethargic, Skin: other (sleral icterus); No nl turgor, No rash or lesions, No diaphoresis, No ecchymosis, No lac eration, No puncture Result Diagram: 08/17/1852208/17/18522 Results 24hrs Laboratory Tests Test 08/17/18 05:23 White Blood Count 6.4 Red Blood Count 2.89 #L Hemoglobin 8.5 #L Hematocrit 24.8 #L Mean Corpuscular Volume 85.8 Mean Corpuscular Hemoglobin 29.4 Mean Corpuscular Hemoglobin Concent 34.3 Red Cell Distribution Width 13.5 Platelet Count 170 Mean Platelet Volume 9.3 Immature Granulocytes % 0.500 H Neutrophils % 51.5 Lymphocytes % 28.5 Monocytes % 17.4 H Eosinophils % 1.6 Basophils % 0.5 Nucleated Red Blood Cells % 0.0 Immature Granulocytes # 0.030 Neutrophils # 3.3 Lymphocytes # 1.8 Monocytes # 1.1 H Eosinophils # 0.1 Basophils # 0.0 Nucleated Red Blood Cells # 0.0 Sodium Level 135 Potassium Level 4.4 Chloride Level 102 Carbon Dioxide Level 26 Anion Gap 7 Blood Urea Nitrogen 21 H Creatinine 1.23 Est Glomerular Filtrat Rate mL/min 58 L Glucose Level 92 Calcium Level 8.0 L Total Bilirubin 1.7 H Direct Bilirubin 0.00 Indirect Bilirubin 1.7 H Aspartate Amino Transf (AST/SGOT) 103 H Alanine Aminotransferase (ALT/SGPT) 51 Alkaline Phosphatase 69 Total Protein 6.2 Albumin 2.8 L Globulin 3.40 H Albumin/Globulin Ratio 0.82 CC: MONICO CHENEY MD ; Exam/Review of Systems Exam Vitals Vital Signs Date Temp Pulse Resp B/P (MAP) Pulse Ox O2 O2 Flow FiO2 Time Delivery Rate 08/17/18 92 12:01 08/17/18 98.6 18 97/57 (70) 95 11:33 08/16/18 Room Air 07:23 Intake and Output 08/16/18 08/16/18 08/17/18 1515:00 23:00 07:00 IntakeIntake Total 970 ml 502 ml OutputOutput Total 350 ml 180 ml BalanceBalance -350 ml 970 ml 322 ml Results Results 24hrs Laboratory Tests Test 08/17/18 05:23 White Blood Count 6.4 Red Blood Count 2.89 #L Hemoglobin 8.5 #L Hematocrit 24.8 #L Mean Corpuscular Volume 85.8 Mean Corpuscular Hemoglobin 29.4 Mean Corpuscular Hemoglobin Concent 34.3 Red Cell Distribution Width 13.5 Platelet Count 170 Mean Platelet Volume 9.3 Immature Granulocytes % 0.500 H Neutrophils % 51.5 Lymphocytes % 28.5 Monocytes % 17.4 H Eosinophils % 1.6 Basophils % 0.5 Nucleated Red Blood Cells % 0.0 Immature Granulocytes # 0.030 Neutrophils # 3.3 Lymphocytes # 1.8 Monocytes # 1.1 H Eosinophils # 0.1 Basophils # 0.0 Nucleated Red Blood Cells # 0.0 Sodium Level 135 Potassium Level 4.4 Chloride Level 102 Carbon Dioxide Level 26 Anion Gap 7 Blood Urea Nitrogen 21 H Creatinine 1.23 Est Glomerular Filtrat Rate mL/min 58 L Glucose Level 92 Calcium Level 8.0 L Total Bilirubin 1.7 H Direct Bilirubin 0.00 Indirect Bilirubin 1.7 H Aspartate Amino Transf (AST/SGOT) 103 H Alanine Aminotransferase (ALT/SGPT) 51 Alkaline Phosphatase 69 Total Protein 6.2 Albumin 2.8 L Globulin 3.40 H Albumin/Globulin Ratio 0.82 Medications Medication Current Medications IV Flush (NS 3 ml) 3 ml PER PROTOCOL IV ; Start 08/15/18 at 20:30 Acetaminophen (Tylenol Tab) 650 mg Q6H PRN PO .PAIN 1-3 OR TEMP Last administered on 08/17/18at 08:08; Admin Dose 650 MG; Start 08/15/18 at 20:30 Morphine Sulfate (morphine) 1 mg Q4H PRN IV .PAIN 7-10 Last administered on 08/15/18at 21:34; Admin Dose 1 MG; Start 08/15/18 at 20:30 Docusate Sodium (Colace) 100 mg Q12H PRN PO .CONSTIPATION Last administered on 08/17/18at 08:08; Admin Dose 100 MG; Start 08/15/18 at 20:30 Bisacodyl (Dulcolax) 5 mg DAILY PRN PO .CONSTIPATION Last administered on 08/17/18 08:08; Admin Dose 5 MG; Start 08/15/18 at 20:30 Lactulose (Enulose) 10 gm BID PRN PO CONSTIPATION; Start 08/15/18 at 23:30 Rifaximin (Xifaxan) 550 mg BID PO Last administered on 08/17/18at 08:08; Admin Dose 550 MG; Start 08/15/18 at 23:30 Pantoprazole (Protonix Tab) 40 mg DAILY@06 PO Last administered on 08/17/18at 07:01; Admin Dose 40 MG; Start 08/16/18 at 06:00 NEYDA TANG MEAL [employer]PERER Aug 17, 2018 16:44
[2018-08-17] MEDS: LACTULOSE 30ML CUP PO SCH (21:07)
[2018-08-18] VITALS (20 sets, daily range): BP systolic 100–124; BP diastolic 57–76; PULSE 76–93; RESP 16–19
[2018-08-18] MEDS: PANTOPRAZOLE (EC) 40 MG TAB PO SCH (06:30)
[2018-08-18] MEDS: LACTULOSE 30ML CUP PO SCH ×2 (09:00→20:52)
[2018-08-18] MEDS: RIFAXIMIN 550 MG TAB PO SCH ×2 (09:00→20:51)
--- NOTE | 2018-08-18 11:00 | PN ---
Date/Time of Note Date/Time of Note DATE: 08/18/18 TIME: 11:00 Objective Vitals Vital Signs Date Temp Pulse Resp B/P (MAP) Pulse Ox O2 O2 Flow FiO2 Time Delivery Rate 08/18/18 98.2 90 18 102/63 99 07:40 (76) 08/16/18 Room Air 07:23 Intake and Output 08/17/18 08/17/18 08/18/18 1414:59 22:59 06:59 IntakeIntake Total 120 ml 990 ml 380 ml OutputOutput Total 200 ml 600 ml BalanceBalance -80 ml 390 ml 380 ml Results Result Diagram: 08/18/18 0453 08/18/18 0453 Medications Medications Current Medications IV Flush (NS 3 ml) 3 ml PER PROTOCOL IV ; Start 08/15/18 at 20:30 Acetaminophen (Tylenol Tab) 650 mg Q6H PRN PO .PAIN 1-3 OR TEMP Last administered on 08/17/18 08:08; Admin Dose 650 MG; Start 08/15/18 at 20:30 Morphine Sulfate (morphine) 1 mg Q4H PRN IV .PAIN 7-10 Last administered on 08/15/18 21:34; Admin Dose 1 MG; Start 08/15/18 at 20:30 Docusate Sodium (Colace) 100 mg Q12H PRN PO .CONSTIPATION Last administered on 08/17/18 08:08; Admin Dose 100 MG; Start 08/15/18 at 20:30 Bisacodyl (Dulcolax) 5 mg DAILY PRN PO .CONSTIPATION Last administered on 08/17/18 08:08; Admin Dose 5 MG; Start 08/15/18 at 20:30 Rifaximin (Xifaxan) 550 mg BID PO Last administered on 08/17/18 21:07; Admin Dose 550 MG; Start 08/15/18 at 23:30 Pantoprazole (Protonix Tab) 40 mg DAILY@06 PO Last administered on 08/18/18 06:30; Admin Dose 40 MG; Start 08/16/18 at 06:00 Lactulose (Enulose) 15 gm BID PO Last administered on 08/17/18 21:07; Admin Dose 15 GM; Start 08/17/18 at 21:00 Sodium Chloride 1,000 ml @ 70 mls/hr [id number] IV ; Start 08/18/18 at 11:00; Status UNV VTE Prophylaxis Risk score (from [facility])>0 risk: 4 SCD applied (from [facility]): Yes Lines/Catheters IV Catheter Type: Garner in Place: No Assessment/Plan Hospital Course Subjective No acute complaints, awaiting EGD Objective Physical exam General: Patient is laying in bed and answers questions appropriately Mentation: Patient is alert and oriented 4, Head: Normocephalic atraumatic Eyes: EOMI, pupils reactive to light Neck: Supple, nontender, midline Respiratory: Clear to auscultation bilaterally Cardiovascular: regular rate, no obvious murmurs Gastrointestinal: Mildly distended non-tender to palpation, bowel sounds heard. Neurological: Moves all extremities spontaneously Skin: No new skin lesions Assessment/Plan 1. Decompensated alcoholic cirrhosis - s/p paracentesis 08/16/18 with 4L removed - holding diuretics given low BP - GI on board and recommendations appreciated. Will plan for EGD on Saturday to assess for varices - continue lactulose and rifaximin 2. Anemia, chronic disease - improvement in hgb following 2 pRBC transfusion yesterday - monitor for acute GI bleeding 3. ?HCC -follows with an onocologist, appt for next week . 4. Acute kidney injury- resolved - avoid nephrotoxic agents 5. Elevated LFT - secondary to #1 6. hyperK - resolved 7. Disposition - Plans for EGD today - Holding diuretics but will restart as BP allows OLGA YAN Aug 18, 2018 11:00
[2018-08-18] MEDS: SOD CHLORIDE 0.45% 1,000 ML IV SCH (11:34)
--- NOTE | 2018-08-18 17:02 | PREAC ---
Date/Time of Note Date/Time of Note DATE: 08/18/18 TIME: 17:01 Anesthesia Eval and Record Evaluation Time Pre-Procedure Interview DATE: 08/18/18 TIME: 17:01 Age 68 Sex male NPO: 8 hrs Preoperative diagnosis GI BLEEDING Planned procedure EGD Past Medical History Past Medical History: Includes Cardio: HTN Endo: Diabetes Hepatic: Alcohol abuse, Hepatitis, Cirrhosis Heme: Anemia Surgery & Anesthesia Issues No known issue Meds Anticoagulation: No Beta Edith within 24 hr: No Reason Beta Edith not given: Pt. not on B-Edith Reported Medications Furosemide* (Lasix*) 40 Mg Tablet, 40 MG PO DAILY, TAB 08/11/18 Spironolactone* (Aldactone*) 50 Mg Tablet, 50 MG PO BID, TAB 06/07/18 Lactulose* (Lactulose*) 10 Gm/15 Ml Solution, 15 ML PO BID PRN for CONSTIPATION, ML 08/19/17 Rifaximin* (Xifaxan*) 550 Mg Tablet, 550 MG PO BID, TAB 07/30/17 Discontinued Scripts Folic Acid* (Folic Acid*) 1 Mg Tablet, 1 MG PO DAILY, #30 TAB 2 Refills Prov:DERRICKKALINA S. 08/06/17 Current Medications IV Flush (NS 3 ml) 3 ml PER PROTOCOL IV ; Start 08/15/18 at 20:30 Acetaminophen (Tylenol Tab) 650 mg Q6H PRN PO .PAIN 1-3 OR TEMP Last administered on 08/17/18 08:08; Admin Dose 650 MG; Start 08/15/18 at 20:30 Morphine Sulfate (morphine) 1 mg Q4H PRN IV .PAIN 7-10 Last administered on 08/15/18at 21:34; Admin Dose 1 MG; Start 08/15/18 at 20:30 Docusate Sodium (Colace) 100 mg Q12H PRN PO .CONSTIPATION Last administered on 08/17/18 08:08; Admin Dose 100 MG; Start 08/15/18 at 20:30 Bisacodyl (Dulcolax) 5 mg DAILY PRN PO .CONSTIPATION Last administered on 08/17/18 08:08; Admin Dose 5 MG; Start 08/15/18 at 20:30 Rifaximin (Xifaxan) 550 mg BID PO Last administered on 08/17/18at 21:07; Admin Dose 550 MG; Start 08/15/18 at 23:30 Pantoprazole (Protonix Tab) 40 mg DAILY@06 PO Last administered on 08/18/18at 06:30; Admin Dose 40 MG; Start 08/16/18 at 06:00 Lactulose (Enulose) 15 gm BID PO Last administered on 08/17/18at 21:07; Admin Dose 15 GM; Start 08/17/18 at 21:00 Sodium Chloride 1,000 ml @ 70 mls/hr [id number] IV Last administered on 08/18/18at 11:34; Admin Dose 70 MLS/HR; Start 08/18/18 at 11:00 Meds reviewed: Yes Allergies Coded Allergies: No Known Allergy (Unverified , 08/22/17) Allergies Reviewed: Yes Labs/Studies Labs Reviewed: Reviewed by anesthesiologist Result Diagram: 08/18/18 0453 08/18/18 0453 Laboratory Tests 08/18/18 04:53 test: N/A Studies: ECG Pre-procedure Exam Last vitals Vital Signs Date Temp Pulse Resp B/P (MAP) Pulse Ox O2 O2 Flow FiO2 Time Delivery Rate 08/18/18 Simple 10 16:54 Mask 08/18/18 99.2 85 17 115/69 99 16:52 (84) Airway: Adequate mouth opening, Adequate thyromental dist Mallampati: Mallampati II Teeth: Normal Lung: Normal Heart: Normal ASA Physical Status ASA physical status: 3 Emergency: None Planned Anesthetic General/MAC: MAC Planned Pain Management Parenteral pain med Pre-operative Attestations Prior to commencing anesthesia and surgery, the patient was re-evaluated, there was verification of: *The patient's identity *The results of appropriate recent lab work and preoperative vital signs *The above evaluation not changing prior to induction *Anesthetic plan, risk benefits, alternative and complications discussed with patient/family; questions answered; patient/family understands, accepts and wishes to proceed. SEVERINO PAGE MD Aug 18, 2018 17:02
[2018-08-18] MEDS ORDERED: PROPOFOL 40 ML ONE (17:04)
[2018-08-18] MEDS ORDERED: LIDOCAINE 2% (SDV) 5 ML INJ ONE (17:04)
--- NOTE | 2018-08-18 17:25 | PAC ---
Date/Time of Note Date/Time of Note DATE: 08/18/18 TIME: 17:24 Post-Anesthesia Notes Post-Anesthesia Note Last documented vital signs Vital Signs Date Temp Pulse Resp B/P (MAP) Pulse Ox O2 O2 Flow FiO2 Time Delivery Rate 08/18/18 Simple 10 16:54 Mask 08/18/18 99.2 85 17 115/69 99 16:52 (84) Activity: WNL Respiratory function: WNL Cardiovascular function: WNL Mental status: Baseline Pain reasonably controlled: Yes Hydration appropriate: Yes Nausea/Vomiting absent: Yes Comments BP:112/56, P:87, Spo2:100%, T:98,8 SEVERINO PAGE MD Aug 18, 2018 17:25
[2018-08-18] MEDS ORDERED: HYDROmorphONE 1 MG/5 ML IV SYRINGE IV PRN ×2 (17:30)
[2018-08-18] MEDS ORDERED: ONDANSETRON 4 MG INJ IV PRN (17:30)
[2018-08-18] MEDS ORDERED: FENTAnyl 50 MCG/ML VIAL IV PRN (17:30)
--- NOTE | 2018-08-18 17:31 | HPN ---
Date/Time of Note Date/Time of Note DATE: 08/18/18 TIME: 17:31 Interval H&P Admission Note Pt. seen H&P reviewed: No system changes LUIS ARMANDO SEBASTIAN Aug 18, 2018 17:31
[2018-08-19] VITALS (12 sets, daily range): BP systolic 97–125; BP diastolic 56–77; PULSE 77–98; RESP 18–19
[2018-08-19] MEDS: SOD CHLORIDE 0.45% 1,000 ML IV SCH (01:18)
[2018-08-19] MEDS: PANTOPRAZOLE (EC) 40 MG TAB PO SCH (05:32)
[2018-08-19] MEDS: LACTULOSE 30ML CUP PO SCH ×2 (09:22→21:00)
[2018-08-19] MEDS: RIFAXIMIN 550 MG TAB PO SCH ×2 (09:22→22:27)
[2018-08-19] MEDS: morphine 2 MG INJ IV PRN (10:58)
[2018-08-19] MEDS: SPIRONOLACTONE 25 MG TAB PO SCH (12:30)
[2018-08-19] MEDS: FUROSEMIDE 20 MG TAB PO SCH (12:30)
--- NOTE | 2018-08-19 12:42 | PN ---
Date/Time of Note Date/Time of Note DATE: 08/19/18 TIME: 12:40 Objective Vitals Vital Signs Date Temp Pulse Resp B/P (MAP) Pulse Ox O2 O2 Flow FiO2 Time Delivery Rate 08/19/18 98.1 85 19 99/64 (76) 97 11:22 08/18/18 Room Air 17:52 08/18/18 8.0 17:29 Intake and Output 08/18/18 08/18/18 08/19/18 1515:00 23:00 07:00 OutputOutput Total 400 ml 801 ml BalanceBalance -400 ml -801 ml Results Result Diagram: 08/19/18 0456 08/19/18 0456 Medications Medications Current Medications IV Flush (NS 3 ml) 3 ml PER PROTOCOL IV ; Start 08/15/18 at 20:30 Acetaminophen (Tylenol Tab) 650 mg Q6H PRN PO .PAIN 1-3 OR TEMP Last administered on 08/17/18 08:08; Admin Dose 650 MG; Start 08/15/18 at 20:30 Morphine Sulfate (morphine) 1 mg Q4H PRN IV .PAIN 7-10 Last administered on 08/19/18 10:58; Admin Dose 1 MG; Start 08/15/18 at 20:30 Docusate Sodium (Colace) 100 mg Q12H PRN PO .CONSTIPATION Last administered on 08/17/18 08:08; Admin Dose 100 MG; Start 08/15/18 at 20:30 Bisacodyl (Dulcolax) 5 mg DAILY PRN PO .CONSTIPATION Last administered on 08/17/18 08:08; Admin Dose 5 MG; Start 08/15/18 at 20:30 Rifaximin (Xifaxan) 550 mg BID PO Last administered on 08/19/18 09:22; Admin Dose 550 MG; Start 08/15/18 at 23:30 Pantoprazole (Protonix Tab) 40 mg DAILY@06 PO Last administered on 08/19/18 05:32; Admin Dose 40 MG; Start 08/16/18 at 06:00 Lactulose (Enulose) 15 gm BID PO Last administered on 08/19/18 09:22; Admin Dose 15 GM; Start 08/17/18 at 21:00 Furosemide (Lasix) 20 mg DAILY PO ; Start 08/19/18 at 12:30 Spironolactone (Aldactone) 25 mg DAILY PO ; Start 08/19/18 at 12:30 Propranolol HCl (Inderal) 5 mg BID PO ; Start 08/19/18 at 21:00; Status UNV VTE Prophylaxis Risk score (from Nsg)>0 risk: 4 SCD applied (from [facility]): Yes Lines/Catheters IV Catheter Type: Garner in Place: No Assessment/Plan Hospital Course Subjective No acute complaints Objective Physical exam General: Patient is laying in bed and answers questions appropriately Mentation: Patient is alert and oriented 4, Head: Normocephalic atraumatic Eyes: EOMI, pupils reactive to light Neck: Supple, nontender, midline Respiratory: Clear to auscultation bilaterally Cardiovascular: regular rate, no obvious murmurs Gastrointestinal: Mildly distended non-tender to palpation, bowel sounds heard. Neurological: Moves all extremities spontaneously Skin: No new skin lesions Assessment/Plan 1. Decompensated alcoholic cirrhosis - s/p paracentesis 08/16/18 with 4L removed - restarting laxis.aldactone low dose - GI on board and recommendations appreciated. EGD found varices, but no report on computer yet, recommended BB - continue lactulose and rifaximin 2. Anemia, chronic disease - improvement in hgb following 2 pRBC transfusion - monitor for acute GI bleeding - stable for now, follow up outpatient when he visit oncologist on the of this month 3. ?HCC -follows with an onocologist, appt for next week . 4. Acute kidney injury- resolved - avoid nephrotoxic agents 5. Elevated LFT - secondary to #1 6. hyperK - resolved 7. Disposition - starting lasix/aldactone/propranalol with BP permitting, if stable, DC tomorrow OLGA YAN Aug 19, 2018 12:42
--- NOTE | 2018-08-19 13:48 | PN ---
Date/Time of Note Date/Time of Note DATE: 08/19/18 TIME: 13:47 Assessment/Plan VTE Prophylaxis Risk score (from Ns)>0 risk: 4 SCD applied (from Ns): Yes Pharmacological prophylaxis: other (scds) Lines/Catheters IV Catheter Type (from [facility]): Urinary Cath still in place: No Assessment/Plan Hospital Course Assessment: Anemia with suspected GI bleeding, possibly secondary to esophageal varices- stable EGD 08/18/18 Esophageal varices- no banding noted -Report to follow Decompensated alcoholic cirrhosis -Ascites, status post paracentesis with 4.2 L out History of hepatocellular carcinoma: Based on records and prior documentation Acute kidney injury Hyperbilirubinemia, likely secondary to above. Hyperkalemia Plan: Pt has been restarted on Lasix/Aldactone, low dose as well as low dose Propranolol- as BP permits Continue Xifaxan/Lactulose 15 ml BID- titrate to 3-4 bm in a 24 hours period Monitor labs, pt will need to be followed by GI after discharge Patient seen in collaboration with Dr. Castelan Subjective: Patient reports improved abdominal discomfort and distention after paracentesis yesterday. Denies any nausea or vomiting. He had a bowel movement today. Denies any rectal bleeding or hematemesis. Reports he was on Lactulose at home, will resume. PHYSICAL EXAMINATION: GENERAL: Alert & oriented x 3, in no acute distress EENT: no lesions CHEST: Inspection within normal limits. CARDIOVASCULAR: Heart: Regular rate and rhythm RESPIRATORY: Lungs clear to auscultation GASTROINTESTINAL AND LIVER: Abdomen: Soft, non tenderness, non-distended, no hernias, no masses, no organomegaly, no ascites, no guarding, no rebound tenderness, normoactive bowel sounds. Rectal: Deferred. Result Diagram: 08/19/18 0456 08/19/18 0456 Results 24hrs Laboratory Tests Test 08/19/18 04:56 08/19/18 12:12 White Blood Count 5.8 Red Blood Count 2.96 L Hemoglobin 8.6 L Hematocrit 25.9 L Mean Corpuscular Volume 87.5 Mean Corpuscular Hemoglobin 29.1 Mean Corpuscular Hemoglobin Concent 33.2 Red Cell Distribution Width 14.0 Platelet Count 199 Mean Platelet Volume 9.5 Immature Granulocytes % 0.300 Neutrophils % 51.9 Lymphocytes % 30.7 Monocytes % 15.0 H Eosinophils % 1.6 Basophils % 0.5 Nucleated Red Blood Cells % 0.0 Immature Granulocytes # 0.020 Neutrophils # 3.0 Lymphocytes # 1.8 Monocytes # 0.9 Eosinophils # 0.1 Basophils # 0.0 Nucleated Red Blood Cells # 0.0 Sodium Level 138 Potassium Level 4.3 Chloride Level 104 Carbon Dioxide Level 24 Anion Gap 10 Blood Urea Nitrogen 11 Creatinine 0.81 Est Glomerular Filtrat Rate mL/min > 60 Glucose Level 85 Calcium Level 8.1 L Total Bilirubin 0.8 Direct Bilirubin 0.00 Indirect Bilirubin 0.8 Aspartate Amino Transf (AST/SGOT) 63 H Alanine Aminotransferase (ALT/SGPT) 40 Alkaline Phosphatase 86 Total Protein 5.9 L Albumin 2.6 L Globulin 3.30 H Albumin/Globulin Ratio 0.78 Lab Scanned Report REFERENCE LAB Exam/Review of Systems Exam Vitals Vital Signs Date Temp Pulse Resp B/P (MAP) Pulse Ox O2 O2 Flow FiO2 Time Delivery Rate 08/19/18 98.1 85 19 99/64 (76) 97 11:22 08/18/18 Room Air 17:52 08/18/18 8.0 17:29 Intake and Output 08/18/18 08/18/18 08/19/18 1515:00 23:00 07:00 OutputOutput Total 400 ml 801 ml BalanceBalance -400 ml -801 ml Results Results 24hrs Laboratory Tests Test 08/19/18 04:56 08/19/18 12:12 White Blood Count 5.8 Red Blood Count 2.96 L Hemoglobin 8.6 L Hematocrit 25.9 L Mean Corpuscular Volume 87.5 Mean Corpuscular Hemoglobin 29.1 Mean Corpuscular Hemoglobin Concent 33.2 Red Cell Distribution Width 14.0 Platelet Count 199 Mean Platelet Volume 9.5 Immature Granulocytes % 0.300 Neutrophils % 51.9 Lymphocytes % 30.7 Monocytes % 15.0 H Eosinophils % 1.6 Basophils % 0.5 Nucleated Red Blood Cells % 0.0 Immature Granulocytes # 0.020 Neutrophils # 3.0 Lymphocytes # 1.8 Monocytes # 0.9 Eosinophils # 0.1 Basophils # 0.0 Nucleated Red Blood Cells # 0.0 Sodium Level 138 Potassium Level 4.3 Chloride Level 104 Carbon Dioxide Level 24 Anion Gap 10 Blood Urea Nitrogen 11 Creatinine 0.81 Est Glomerular Filtrat Rate mL/min > 60 Glucose Level 85 Calcium Level 8.1 L Total Bilirubin 0.8 Direct Bilirubin 0.00 Indirect Bilirubin 0.8 Aspartate Amino Transf (AST/SGOT) 63 H Alanine Aminotransferase (ALT/SGPT) 40 Alkaline Phosphatase 86 Total Protein 5.9 L Albumin 2.6 L Globulin 3.30 H Albumin/Globulin Ratio 0.78 Lab Scanned Report REFERENCE LAB Medications Medication Current Medications IV Flush (NS 3 ml) 3 ml PER PROTOCOL IV ; Start 08/15/18 at 20:30 Acetaminophen (Tylenol Tab) 650 mg Q6H PRN PO .PAIN 1-3 OR TEMP Last administered on 08/17/18 08:08; Admin Dose 650 MG; Start 08/15/18 at 20:30 Morphine Sulfate (morphine) 1 mg Q4H PRN IV .PAIN 7-10 Last administered on 08/19/18 10:58; Admin Dose 1 MG; Start 08/15/18 at 20:30 Docusate Sodium (Colace) 100 mg Q12H PRN PO .CONSTIPATION Last administered on 08/17/18 08:08; Admin Dose 100 MG; Start 08/15/18 at 20:30 Bisacodyl (Dulcolax) 5 mg DAILY PRN PO .CONSTIPATION Last administered on 08/17/18 08:08; Admin Dose 5 MG; Start 08/15/18 at 20:30 Rifaximin (Xifaxan) 550 mg BID PO Last administered on 08/19/18 09:22; Admin Dose 550 MG; Start 08/15/18 at 23:30 Pantoprazole (Protonix Tab) 40 mg DAILY@06 PO Last administered on 08/19/18 05:32; Admin Dose 40 MG; Start 08/16/18 at 06:00 Lactulose (Enulose) 15 gm BID PO Last administered on 08/19/18 09:22; Admin Dose 15 GM; Start 08/17/18 at 21:00 Furosemide (Lasix) 20 mg DAILY PO ; Start 08/19/18 at 12:30 Spironolactone (Aldactone) 25 mg DAILY PO ; Start 08/19/18 at 12:30 Propranolol HCl (Inderal) 5 mg BID PO ; Start 08/19/18 at 21:00 CARMEN GUZMAN Aug 19, 2018 13:47
[2018-08-19] MEDS: PROPRANOLOL 10 MG TAB PO SCH (22:27)
[2018-08-20] VITALS (7 sets, daily range): BP systolic 92–108; BP diastolic 62–69; PULSE 64–87; RESP 18–19
[2018-08-20] MEDS: PANTOPRAZOLE (EC) 40 MG TAB PO SCH (05:44)
[2018-08-20] MEDS: LACTULOSE 30ML CUP PO SCH (08:15)
[2018-08-20] MEDS: PROPRANOLOL 10 MG TAB PO SCH (08:16)
[2018-08-20] MEDS: RIFAXIMIN 550 MG TAB PO SCH (08:16)
[2018-08-20] MEDS: FUROSEMIDE 20 MG TAB PO SCH (08:16)
[2018-08-20] MEDS: SPIRONOLACTONE 25 MG TAB PO SCH (08:16)
[2018-08-20] MEDS: morphine 2 MG INJ IV PRN (09:07)
[2018-08-20] MEDS ORDERED: PROP10TA6 PO (13:08)
[2018-08-20] MEDS ORDERED: SPIR25TA PO (13:08)
[2018-08-20] MEDS ORDERED: LAS20 PO (13:08)
--- NOTE | 2018-08-20 13:10 | PDOCDIS ---
Discharge Instructions CONDITION [id number] Patient Condition: [id number] Stable ACTIVITY: [id number] Activity Restrictions: [id number] Slowly Increase Activity FOLLOW UP/APPOINTMENTS Follow-up Plan Please follow-up with your welfare aide as soon as possible in order to titrate up medications. OLGA YAN Aug 20, 2018 13:10
--- NOTE | 2018-08-20 13:14 | DS ---
Date/Time of Note Date/Time of Note DATE: 08/20/18 TIME: 13:14 Discharge Summary Admission/Discharge Info Admit Date/Time Aug 15, 2018 at 19:32 Discharge Date/Time Patient Condition: Stable Hospital Course Patient is a male with a past medical history significant for alcoholic cirrhosis and hepatocellular carcinoma questionable who presents to [facility] as a transfer for anemia. Patient does have a history of esophageal varices as well and subsequently GI did perform an additional upper endoscopy. Upper endoscopy did not find any source of bleeding but did not notice varices. Patient does have a history of anemia of chronic disease and this is likely the reasoning behind patient's low hemoglobin. Patient's medi cations were adjusted and patient was restarted on a low dose of his diuretics and patient will follow up with his forming acid dumper as possible titrate up. Patient was also restarted on his propanolol that he used to be on a long time ago however his forming acid dumper previously discontinued due to continuously low blood pressure. Very low dose of all medications will be initiated and to uptitrate with gastroenterology in the outpatient setting. Patient also has a questionable hepatic cell carcinoma which has an appointment for an oncologist next week on August 27. Patient feels well and will be discharged with appropriate medications. Discharge diagnosis Decompensated alcoholic cirrhosis, resolving Anemia, chronic disease Questionable hepatocellular carcinoma, follow-up with oncology outpatient Acute kidney injury, resolved Elevated liver enzymes, secondary to above cirrhosis Distended abdomen, secondary to cirrhosis Home Meds Active Scripts Furosemide (Lasix) 20 Mg Tab, 20 MG PO DAILY for 30 Days, #30 TAB Hold if systolic blood pressure is less than 100 Prov:OLGA YAN 08/20/18 Spironolactone* (Aldactone*) 25 Mg Tablet, 25 MG PO DAILY for 30 Days, #30 TAB Hold if systolic blood pressure is less than 100 Prov:OLGA YAN 08/20/18 Propranolol Hcl* (Propranolol Hcl*) 10 Mg Tablet, 5 MG PO BID for 30 Days, #15 T AB Hold if systolic blood pressure is less than 100 Prov:OLGA YAN 08/20/18 Reported Medications Lactulose* (Lactulose*) 10 Gm/15 Ml Solution, 15 ML PO BID PRN for CONSTIPATION, ML 08/19/17 Rifaximin* (Xifaxan*) 550 Mg Tablet, 550 MG PO BID, TAB 07/30/17 Discontinued Reported Medications Furosemide* (Lasix*) 40 Mg Tablet, 40 MG PO DAILY, TAB 08/11/18 Spironolactone* (Aldactone*) 50 Mg Tablet, 50 MG PO BID, TAB 06/07/18 Follow-up Plan Please follow-up with your forming acid dumper as soon as possible in order to titrate up medications. Primary Care Provider Not On Staff Doctor Time spent on discharge: > 30 minutes Pending Labs Laboratory Tests Test 08/20/18 05:16 08/20/18 10:47 White Blood Count 5.5 10^3/ul (4.8-10.8) Red Blood Count 3.32 10^6/ul (4.70-6.10) Hemoglobin 9.7 g/dl (14.0-18.0) Hematocrit 29.3 % (42.0-52.0) Mean Corpuscular Volume 88.3 fl (82.0-101.0) Mean Corpuscular Hemoglobin 29.2 pg (29.0-33.0) Mean Corpuscular Hemoglobin Concent 33.1 g/dl (32.0-37.0) Red Cell Distribution Width 14.9 % (11.5-14.5) Platelet Count 234 10^3/UL (140-415) Mean Platelet Volume 9.4 fl (7.4-10.4) Immature Granulocytes % 0.500 % (0.001-0.429) Neutrophils % 45.3 % (39.0-77.0) Lymphocytes % 36.5 % (15.0-51.0) Monocytes % 13.6 % (0.0-11.0) Eosinophils % 3.6 % (0.0-7.0) Basophils % 0.5 % (0.0-2.0) Nucleated Red Blood Cells % 0.4 /100WBC (0.0-0.0) Immature Granulocytes # 0.030 10^3/ul (0.0-0.031) Neutrophils # 2.5 10^3/ul (1.6-7.5) Lymphocytes # 2.0 10^3/ul (0.8-2.9) Monocytes # 0.8 10^3/ul (0.3-0.9) Eosinophils # 0.2 10^3/ul (0.0-0.5) Basophils # 0.0 10^3/ul (0.0-0.1) Nucleated Red Blood Cells # 0.0 10^3/ul (0.0-0.0) Sodium Level 135 mmol/L (135-144) Potassium Level 4.0 mmol/L (3.5-5.1) Chloride Level 103 mmol/L (97-110) Carbon Dioxide Level 23 mmol/L (21-31) Anion Gap 9 (5-13) Blood Urea Nitrogen 9 mg/dl (7-20) Creatinine 0.80 mg/dl (0.61-1.24) Est Glomerular Filtrat Rate mL/min > 60 mL/min (>60) Glucose Level 94 mg/dl (70-220) Calcium Level 8.3 mg/dl (8.4-10.2) Magnesium Level 1.9 mg/dl (1.7-2.5) Total Bilirubin 0.9 mg/dl (0.2-1.3) Direct Bilirubin 0.00 mg/dl (0.00-0.20) Indirect Bilirubin 0.9 mg/dl (0-1.1) Aspartate Amino Transf (AST/SGOT) 65 IU/L (15-46) Alanine Aminotransferase (ALT/SGPT) 35 IU/L (13-69) Alkaline Phosphatase 111 IU/L (42-121) Total Protein 6.6 g/dl (6.1-8.1) Albumin 2.9 g/dl (3.3-4.9) Globulin 3.70 g/dl (1.3-3.2) Albumin/Globulin Ratio 0.78 Ammonia 49 umol/l (9-30) OLGA YAN Aug 20, 2018 13:14
== END 2018-08-20 15:10 | disposition home or self-care (01) | DRG 433 ==
LOC: 6WM 19:32
PROVIDERS: ADMIT Internal Medicine; ATTEND Internal Medicine
PROC: 0W9G3ZZ Drainage of Peritoneal Cavity, Percutaneous Approach (ICD-10-PCS; principal; 2018-08-16)
PROC: 30233N1 Transfusion of Nonautologous Red Blood Cells into Peripheral Vein, Percutaneous Approach (ICD-10-PCS; 2018-08-16)
DX: K70.31 Alcoholic cirrhosis of liver with ascites (principal); C22.0 Liver cell carcinoma; N17.9 Acute kidney failure, unspecified; E87.5 Hyperkalemia; D63.8 Anemia in other chronic diseases classified elsewhere; F10.10 Alcohol abuse, uncomplicated
CPT/HCPCS: 36430; 80053; 80061; 82140; 82962; 83036; 83735; 84443; 85025; 85610; 85730; 86850; 86900; 86901; 86920; 87081; J1815; J1940; J2270; J7040; P9016; P9047